=== PATIENT | male | born 1995 | race Caucasian/White ===

== ENCOUNTER 2017-05-15 02:47 | Emergency (ER) | payer OTHER ==
[~2017-05-15] VITALS: Ht 180.3 cm; Wt 87.6 kg
[2017-05-15 02:54] VITALS: TEMP 37.5; Ht 180.3 cm; Wt 87.6 kg
--- NOTE | 2017-05-15 02:55 | EMERGENCY ROOM VISIT NOTE ---
History Report prepared by Zacarias: Pedro Cuenca Under the Supervision of: Dr. Dimitry King M.D. First contact with patient: 02:48 Chief Complaint: ALCOHOL OVERDOSE Stated Complaint: ALCOHOL OVERDOSE/FALL History of Present Illness The patient is a 21 year old male who presents to the Emergency Room with complaints of an alcohol intoxication. This history is limited secondary to the patient's intoxication. He states that he fell and hit his head. He has mild head and neck pain. Source of History: patient History Limited By: intoxication Onset: tonight Position: other (global) Symptom Intensity: moderate Quality: other (ETOH) Timing: constant Review of Systems ROS limited secondary to the patient's intoxication. Past Medical & Surgical Unable to obtain secondary to the patient's intoxication. Family History Unable to obtain secondary to the patient's intoxication. Social History Alcohol Use: occasionally Occupation Status: [employer] student Unable to obtain secondary to the patient's intoxication. Current/Historical Medications No Active Prescriptions or Reported Meds Allergies Coded Allergies: No Known Allergies (Unverified , 05/15/17) Physical Exam Vital Signs Date Time Temp Pulse Resp B/P (MAP) Pulse Ox O2 Delivery O2 Flow Rate FiO2 05/15/17 05:06 108 18 96 Room Air 05/15/17 05:01 102/53 05/15/17 04:36 122 96 05/15/17 04:30 128/48 05/15/17 04:06 91 16 92 Room Air 05/15/17 04:01 96 16 122/48 93 Room Air 05/15/17 03:30 113/52 05/15/17 03:22 116 17 05/15/17 03:20 98 Nasal Cannula 3.0 05/15/17 03:17 116 17 85 Room Air 05/15/17 03:12 102/58 05/15/17 03:01 144 05/15/17 02:54 37.5 131 20 115/74 99 Room Air 05/15/17 02:52 115/74 Physical Exam GENERAL: Patient is heavily intoxicated. Smells of alcohol. Well appearing and in no acute distress. HEAD: NC, large hematoma over the left lateral eyebrow. EYES: Injected conjunctiva. Normal EOM. Pupils equal/reactive. ENT: Mucous membranes moist, no nasal congestion, . NECK: No step-offs, no adenopathy, no meningismus, trachea is midline. LUNGS: No dyspnea. Clear to auscultation and equal bilaterally. No wheeze, no rhonchi. HEART: Regular rate and rhythm. No murmurs, rubs, gallops appreciated. ABDOMEN: Soft, nontender, bowel sounds positive, no masses appreciated, no peritonitis. BACK: No midline tenderness, no CVA tenderness EXTREMITIES: Normal motion all extremities, no cyanosis, no edema. NEUROLOGIC: Intoxicated. Slurred speech, but awake. Answering questions. Alert, oriented. No acute motor or sensory deficits, no focal weakness, cranial nerves grossly intact. SKIN: No rash, no jaundice, no diaphoresis. Medical Decision & Procedures ER Provider Diagnostic Interpretation: Radiology results and stated below per my review and radiologist interpretation: CT HEAD: No evidence of acute infarct, hemorrhage, mass, or edema. No acute calvarial abnormality. Left preseptal soft tissue swelling, likely posttraumatic. Minimal mucosal thickening of the paranasal sinuses. Radiologist: Magdaleno Alex MD Laboratory Results 05/15/17 02:59 Test 05/15/17 02:59 Anion Gap 6.0 mmol/L (3-11) Est Creatinine Clear Calc Drug Dose 115.0 ml/min Estimated GFR () 112.2 Estimated GFR (Non- 96.8 BUN/Creatinine Ratio 14.1 (10-20) Calcium Level 9.0 mg/dl (8.5-10.1) Ethyl Alcohol mg/dL 306.0 mg/dl (0-3) Laboratory results as reviewed by me. ED Course 0248: The patient was evaluated in room B7. A complete history and physical exam was performed. The patient will be discharged when awake, alert, oriented x3, and sober. Medical Decision Differential: Alcohol Intoxication, Drug Intoxication, Electrolyte Abnormality, Trauma, Intracranial Event, Toxicological, Excited Delirium, Serotonin Syndrome , amongst other pathologies entertained. 21 yr old intoxicated male brought in by EMS after being intoxicated and fell in the doorway at his dorm room. Besides moderate contusion of left eyebrow, patient with no evidence nor history for trauma. WIth head injury in alcoholic felt CT head mandatory which fortunately was negative. Protecting airway and breathing comfortably throughout ED stay. EtOH positive. Monitored and discharged when awake, alert, oriented and denies any complaints. Medication Reconcilliation Current Medication List: was personally reviewed by me Blood Pressure Screening Patient's blood pressure: Normal blood pressure Blood pressure disposition: Did not require urgent referral Impression Primary Impression: Alcohol abuse Additional Impressions: Alcohol intoxication Head injury, closed Eyebrow contusion Scribe Attestation The scribe's documentation has been prepared under my direction and personally reviewed by me in its entirety. I confirm that the note above accurately reflects all work, treatment, procedures, and medical decision making performed by me. Departure Information Dispostion Home / Self-Care Prescriptions No Active Prescriptions or Reported Meds Referrals [facility] Forms HOME CARE DOCUMENTATION FORM, IMPORTANT VISIT INFORMATION Patient Instructions My [facility] Additional Instructions You were evaluated in emergency department for intoxication. This is a sign of Alcohol Abuse and should not be taken lightly. You had a blood alcohol level that was significantly elevated. Over the next 24 hours keep well hydrated and eat light meals. Don't drink any more alcohol. This is important. Please discuss this visit with your Primary Care Provider, [facility] and/or your loved ones. Unless an exceptional circumstance, the Hospital DOES NOT contact anyone DURING your visit, nor is your Protected Medical Information released to anyone without your approval/request. This means we do not contact your Parents, the Police, etc. However, you will likely receive a bill from the Hospital and/or your Insurance company, which will usually be sent to the Primary Policy Marie (often one's Parents). Furthermore, as a student, your visit report will likely be sent to [facility] as your primary care provider, unless other Provider listed. If your incident was on campus, or if the Police were involved, they will often contact the University to make them aware of what happened. Often this will result in you being required to take Alcohol Education classes (ie BASICS class) . Please see information given to you at discharge regarding contact for this. If the Police were involved you will likely be cited for public intoxication. Please contact either [facility] Police or the [place] Police for further information. Call 911 or return to Emergency Department if you develop: Passing out, difficulty breathing, many episodes of vomiting, blood in vomit or stool, abdominal pain, fevers, or other severe symptoms. We are always here to help if you feel you need further evaluation or treatment. Problem Qualifiers
[2017-05-15 03:26] LABS: BUN/CREATININE RATIO 14.1 (10-20); CREATININE 1.1 mg/dl (0.60-1.40); POTASSIUM 3.5 mmol/L (3.5-5.1)
--- NOTE | 2017-05-15 06:36 | DIAGNOSTIC IMAGING REPORT ---
HEAD WITHOUT CONTRAST (CT) CLINICAL HISTORY: 21 years-old Male with fall, left facial injury, etoh, ams. Acute injury TECHNIQUE: Multiple axial CT images of the head were obtained without contrast. A dose lowering technique was utilized adhering to the principles of ALARA. CT DOSE: 614.27 mGy.cm COMPARISON: None. FINDINGS: No acute intracranial hemorrhage, midline shift, mass, large territorial ischemia or abnormal extra-axial collection. The calvarium is intact. The mastoid air cells, and middle ear cavities are clear. There is mild mucosal thickening of the ethmoid air cells. There is a moderate degree of left periorbital soft tissue swelling without radiopaque foreign body. IMPRESSION: 1. No acute intracranial abnormality. 2. Moderate left periorbital soft tissue swelling without radiopaque foreign body or calvarial fracture. The above report was generated using voice recognition software. It may contain grammatical, syntax or spelling errors. Electronically signed by: Freddy Hernandez M.D. 05/15/2017 6:35 AM Dictated Date/Time: 05/15/2017 6:33 AM
[2017-05-15 10:01] VITALS: BP 125/86; PULSE 124; O2SAT 100
== END 2017-05-15 10:02 | disposition home or self-care (01) ==
LOC: EDBD 02:47 → C.EDB 02:48
DX: F10.120 Alcohol abuse with intoxication, uncomplicated (principal); S00.12XA Contusion of left eyelid and periocular area, initial encounter; W19.XXXA Unspecified fall, initial encounter; W22.09XA Striking against other stationary object, initial encounter; Y92.169 Unspecified place in school dormitory as the place of occurrence of the external cause; Y90.8 Blood alcohol level of 240 mg/100 ml or more